=== PATIENT | male | born 1995 | race Caucasian/White ===

== ENCOUNTER 2018-06-25 03:06 | Emergency (ER) | payer BC, MEDICAID ==
[2018-06-25] MEDS ORDERED: CEPHALEXIN 500 MG CAPSULE PO STA (03:38)
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
== END 2018-06-25 03:49 | disposition home or self-care (01) ==
LOC: ER 03:06
DX: S91.311A Laceration without foreign body, right foot, initial encounter (principal); W26.0XXA Contact with knife, initial encounter; Y92.009 Unspecified place in unspecified non-institutional (private) residence as the place of occurrence of the external cause
CPT/HCPCS: 12001; 99283

== ENCOUNTER 2018-07-09 09:46 | Emergency (ER) | payer BC ==
--- NOTE | 2018-07-09 10:08 | Emergency Department Record ---
History of Present Illness - General Chief Complaint: Suture removal Stated Complaint: STITCHES REMOVED Time Seen by Provider: 07/09/18 10:06 Source: Patient Mode of arrival: Ambulatory - History of Present Illness Initial Comments: sutures here 14 days ago. Noc omplaints. Healing well Onset/Timin -: Days(s) Initial Visit For: Laceration Returns Today for: Staple/stitch removal Symptoms Since Prior Visit: No new symptoms Associated Symptoms: None - Related Data Previous Rx's Medication Instructions Recorded Cephalexin [Keflex] 500 mg PO QID #40 cap 06/25/18 Allergies Allergy/AdvReac Type Severity Reaction Status Date / Time No Known Drug Allergies Allergy Verified 07/09/18 09:51 Travel Screening - Travel/Exposure Within Last 30 Days Have you traveled within the last 30 days?: No Review of Systems Reviewed: No additional complaints except as noted below Constitutional: Denies: Chills, Fever Eyes: Denies: Eye discharge, Photophobia ENT: Denies: Congestion Respiratory: Denies: Cough Cardiovascular: Denies: Arrhythmia Musculoskeletal: Denies: Arthralgia, Joint swelling Skin: Denies: Rash Past Medical History - SOCIAL HISTORY Smoking Status: Never smoker Alcohol Use: None Drug Use: None - RESPIRATORY Hx Respiratory Disorders: No - CARDIOVASCULAR Hx Cardio Disorders: No - NEURO Hx Neuro Disorders: No - GI Hx GI Disorders: No - Hx Genitourinary Disorders: No - ENDOCRINE Hx Endocrine Disorders: No - MUSCULOSKELETAL Hx Musculoskeletal Disorders: No - PSYCH Hx Psych Problems: No - HEMATOLOGY/ONCOLOGY Hx Hematology/Oncology Disorders: No Family Medical History Any Significant Family History?: No Family Hx Comment (NOT TO BE USED IN PLACE OF ITEMS BELOW): unknown Physical Exam - General General Appearance: Alert, Oriented x3, Cooperative, No acute distress - Head Head exam: Atraumatic - Extremities Extremities exam: Normal inspection (healed lac to dorsal right foot. No erythema or discharge. [address] ) Course Vital Signs 07/09/18 09:51 Temperature 97.7 F Pulse Rate 60 Respiratory 18 Rate Blood Pressure 135/64 Pulse Ox 100 - Reevaluation(s) Reevaluation #1: 07/09/18 10:08 sutures x 2 removed without issue. tolerated well. Disposition Disposition: Discharge Clinical Impression: Encounter for removal of sutures Disposition: Home, Self-Care Condition: (1) Good Instructions: Stitches Removal (ED) Time of Disposition: 10:06 Quality - Quality Measures Quality Measures: N/A - Blood Pressure Screening Does Patient Have Any of the Following: No Blood Pressure Classification: Pre-Hypertensive BP Reading Systolic Measurement: 135 Diastolic Measurement: 64 Screening for High Blood Pressure: < Normal BP, F/U Not Required > [G8783]
== END 2018-07-09 10:25 | disposition home or self-care (01) ==
LOC: ER 09:46
DX: Z48.02 Encounter for removal of sutures (principal)